=== PATIENT | male | born 1960 | race Caucasian/White ===

== ENCOUNTER → 2024-07-10 | Outpatient (CLI) | payer MEDICARE, SELFPAY ==
--- NOTE | 2024-07-10 14:44 | XR_ITS ---
Examination: PA lateral chest 2 views TECHNIQUE: Upright PA lateral chest 2 views Exam date and time: 06/09/2024 1451 hours INDICATIONS: Diagnosis hypertensive heart disease. FINDINGS: Mild prominence left ventricle Mild prominent central pulmonary arteries No lobar pneumonia No pulmonary edema IMPRESSION: Suspicious for pulmonary artery hypertension
[2024-07-10 16:51] LABS: Basophils # (Auto) 0.1 Thou/mm3 (0.0-0.2); Basophils % (Auto) 1 % (0-2.5); Eosinophils # (Auto) 0.2 Thou/mm3 (0.0-0.5); Eosinophils % (Auto) 2 % (0-10); Hematocrit 43.6 % (41.0-53.0); Hemoglobin 14.8 g/dL (13.5-16.0); Immature Granulocytes % (Auto) 1 % (0-0); Immature Granulocytes Auto 0.07 Thou/mm3 (0.00-0.00); Lymphocytes # (Auto) 4.3 Thou/mm3 (1.0-4.8); Lymphocytes % (Auto) 35 % (10-50); Mean Corpuscular HGB Conc 33.9 g/dl (31.0-37.0); Mean Corpuscular Hemoglobin 29.8 pg (25.0-35.0); Mean Corpuscular Volume 88 fL (80-100); Monocytes # (Auto) 0.7 Thou/mm3 (0.0-0.8); Monocytes % (Auto) 5 % (0-12); Neutrophils # (Auto) 7.1 Thou/mm3 (1.8-7.7); Neutrophils % (Auto) 57 % (37-80); Nucleated Red Blood Cell % 0 /100 WBC (0); Platelet Count 178 Thou/mm3 (140-440); RDW Standard Deviation 47.3 fL (35.1-43.9); Red Blood Count 4.96 Miln/mm3 (4.50-5.90); White Blood Count 12.4 Thou/mm3 (3.8-10.6)
[2024-07-10 17:03] LABS: Glucose Estimated Average 126 mg/dL (80-131)
[2024-07-10 17:12] LABS: Prostate Specific Antigen 2.27 ng/mL (0-4.00)
[2024-07-10 17:17] LABS: Alanine Aminotransferase 35 U/L (10-49); Albumin, Serum 4.4 gm/dL (3.4-4.8); Alkaline Phosphatase 94 U/L (46-116); Anion Gap 3 (7-16); Aspartate Amino Transferase 27 U/L (0-34); BUN/Creatinine Ratio 17 Ratio (12-20); Bilirubin,Total 0.5 mg/dL (0.3-1.2); Blood Urea Nitrogen 17 mg/dL (9-23); Calcium 9.4 mg/dL (8.3-10.6); Calcium (Corrected) 9.4 mg/dL (8.5-10.1); Carbon Dioxide 28.2 mMol/L (20.0-31.0); Cardiac Risk Estimate 4.5 RATIO (4.0-6.7); Chloride 107 mMol/L (98-107); Cholesterol 198 mg/dL (132-200); Free T4 (Free Thyroxine) 1.13 ng/dL (0.89-1.76); Globulin 2.2 gm/dL (2.3-3.5); Glucose 80 mg/dL (74-106); HDL Cholesterol 44 mg/dL (40-60); LDL Cholesterol,Calculated 125 mg/dL (0-130); Osmolality,Calculated 276 (275-295); Potassium 4.2 mMol/L (3.4-5.1); Sodium 138 mMol/L (136-145); Thyroid Stimulating Hormone 1.82 uIU/mL (0.55-4.78); Total Protein 6.6 gm/dL (5.7-8.2); Triglycerides 146 mg/dL (30-150); eGFR > 60 See Note
[2024-07-10 19:18] LABS: Vitamin D 25 Hydroxy Total 26.6 ng/mL (7.3-40.2)
== END | disposition home or self-care (01) ==
PROVIDERS: PCP Internal Medicine; Referring Provider Internal Medicine; Visit Provider Internal Medicine
DX: I10 Essential (primary) hypertension (principal); E55.9 Vitamin D deficiency, unspecified; N40.1 Benign prostatic hyperplasia with lower urinary tract symptoms; Z00.00 Encounter for general adult medical examination without abnormal findings
CPT/HCPCS: 36415; 71046; 80053; 80061; 82306; 83036; 84153; 84439; 84443; 85025

== ENCOUNTER 2024-12-11 01:20 | Emergency (ER) | payer OTHER, SELFPAY ==
[2024-12-11 01:40] VITALS: BP 116/64; PULSE 99; RESP 19; TEMP 36.6; O2SAT 96
[2024-12-11] MEDS: AMOXICILLIN/POT CLAV 875 TABLET 1 TAB PO (02:04)
--- NOTE | 2024-12-11 05:30 | PD.EDDENTL ---
ED Dental RME/HPI General Chief complaint: Dental/Oral/Throat Stated complaint: TOOTH ABSCESS Time Seen by Provider: 12/11/24 01:48 Arrival date/time: 12/11/24 01:20 64M with history of drug use presents to ED with lower dental pain and jaw swelling. Patient does not see dentist, but has appt next month. Patient just wants ABX. Limitations: no limitations Related Data Home Medications ?Medication ?Instructions ?Recorded ?Confirmed gemfibrozil 600 mg tablet 600 mg PO BID 05/25/18 05/25/18 lovastatin 20 mg tablet 1 tab PO HS 05/25/18 05/25/18 methadone 10 mg tablet 10 mg PO BID 05/25/18 05/25/18 nortriptyline 25 mg capsule 1 tab PO HS 05/25/18 05/25/18 (Pamelor) Previous Rx's ?Medication ?Instructions ?Recorded amoxicillin 500 mg-potassium 1 tab PO QDAY #14 tabs 05/25/18 clavulanate 125 mg tablet (Augmentin) meclizine 25 mg tablet 25 mg PO QDAY PRN dizziness #30 05/25/18 tabs amoxicillin 875 mg-potassium 1 tab PO BID 7 days #14 tabs 12/11/24 clavulanate 125 mg tablet Allergies Allergy/AdvReac Type Severity Reaction Status Date / Time No Known Allergies Allergy Verified 12/11/24 01:21 Review of Systems Review of Systems Systems Reviewed: All systems reviewed, normal except as documented Constitutional Constitutional: Reports system reviewed and no additional complaints, except as documented, Denies fever(s) and Denies headache(s) ENT Ears, Nose, Mouth, and Throat: Reports as per HPI, Reports dental pain, Denies disequilibrium and Denies headache(s) Cardiovascular Cardiovascular: Reports system reviewed and no additional complaints, except as documented, Denies chest pain and Denies dyspnea Respiratory Respiratory: Reports system reviewed and no additional complaints, except as documented, Denies cough and Denies dyspnea Gastrointestinal Gastrointestinal: Reports system reviewed and no additional complaints, except as documented, Denies abdominal pain, Denies nausea and Denies vomiting Neurologic Neurologic: Reports system reviewed and no additional complaints, except as documented, Denies confusion, Denies disequilibrium and Denies headache(s) Psychiatric Psychiatric: Denies confusion Past Medical History Past Medical History CARDIAC: Positive Cardiac Disorders, Hypercholesterolemia and Hypertension; Negative Congestive Heart Failure RESPIRATORY: Negative Chronic Obstructive Pulmonary Disease (COPD) GENITOURINARY: Negative Renal Disease MUSCULOSKELETAL: Positive Musculoskeletal Disorders ENDOCRINE: Negative Diabetes Mellitus Type 1 or Diabetes Mellitus Type 2 Surgical History SURGICAL: Positive Joint Replacement Social History SMOKING STATUS: Current every day smoker ED Exam General Limitations: Present no limitations General appearance: Present alert and in no apparent distress Head Head exam: Present atraumatic Eye Eye exam: Present normal appearance, PERRL and EOMI ENT ENT exam: Present mucous membranes moist Expanded ENT Exam Teeth exam: Present dental caries, dental tenderness # and other (L cheek/jaw swelling) Neck Neck exam: Present normal inspection, full ROM and trachea midline Chest Chest inspection: Present normal inspection and symmetric chest wall rise Respiratory Respiratory exam: Present normal lung sounds bilaterally Cardiovascular Cardiovascular exam: Present regular rate, normal rhythm and normal heart sounds Abdominal Exam Abdominal exam: Present soft and normal bowel sounds Extremities Exam Extremities exam: Present normal inspection and full ROM Back Exam Back exam: Present normal inspection and full ROM Neurological Exam Neurological exam: Present alert, oriented X3 and CN II-XII intact Psychiatric Psychiatric exam: Present normal affect and normal mood Skin Skin exam: Present warm, dry, intact and normal color Course Quality Measures none Orders Category Date Time Status Amoxicillin/Pot Clav 875 [Augmentin 875] Med 12/11/24 01:55 Discontinued 1 tab PO X1 ONE Vital Signs Vital signs: Vital Signs Temperature 98 F 12/11/24 01:40 Pulse Rate 99 12/11/24 01:40 Respiratory Rate 19 12/11/24 01:40 Blood Pressure 116/64 12/11/24 01:40 Pulse Oximetry (%) 96 12/11/24 01:40 Oxygen Delivery Method Room Air 12/11/24 01:40 O2 at 96% on RA and WNLs Dental / Oral MDM Narrative MDM Narrative:: 64M with history of drug use presents to ED with lower dental pain and jaw swelling. Patient does not see dentist, but has appt next month. Patient just wants ABX. Physical exam reveals lower dental tenderness and jaw/cheek swelling. Most teeth are gone. Patient is afebrile, calm, and alert. Meds and associate counsel given. Patient data External records reviewed:: [facility] previous records Clinical information provided by:: patient Social determinants that could affect healthcare access:: substance use Patient has the following chronic illnesses:: drug use How is presenting disease/condition affected by chronic disease/condition?: exacerbated by Evaluation data The following diagnostics were reviewed and interpreted by me:: other (specify) (none) Lab and/or radiology exams considered but not ordered:: not ordered Interpretation Summary: n/a Medications / Prescriptions Medications or Prescriptions considered but not ordered:: ordered Medication administrations:: Medication Administration History Discontinued Medications Amoxicillin/Clavulanate Potassium (Amoxicillin/Pot Clav 875 Tablet) 1 tab PO X1 ONE Stop: 12/11/24 01:56 Last Admin: 12/11/24 02:04 Dose: 1 tab Documented By: CVL above Consultations Consultation(s) initiated? (list below): No Diagnosis Dental Differential Diagnosis: gingival abscess, dental caries, toothache, dental abscess, fracture of tooth and aphthous ulcer Most likely diagnosis given after review of the tests above:: dental abscess Admission Indicated Admission indicated?: not indicated Admission Request Was there a request for admission?: No Disposition Plan Disposition Plan: Discharge Discharge Attestation Discharge Attestation: The patient and all family members were given an opportunity to ask questions and understood the discharge instructions. Discharge instructions specifically effects, indications for sooner follow up or return to the emergency department, and the expected course of current diagnosis. Patient condition: Stable Discharge Plan Plan Patient Disposition: HOME (Self Care) Discharge Disposition comment: Stable Prescriptions/Referrals Prescriptions/Med Rec: New amoxicillin-pot clavulanate 875-125 mg tablet 1 tab PO BID 7 Days Qty: 14 0RF No Action methadone 10 mg Tablet 10 mg PO BID gemfibrozil 600 mg Tablet 600 mg PO BID lovastatin 20 mg Tablet 1 tab PO HS nortriptyline [Pamelor] 25 mg Capsule 1 tab PO HS amoxicillin-pot clavulanate [Augmentin] 500-125 mg tablet 1 tab PO QDAY Qty: 14 0RF meclizine 25 mg tablet 25 mg PO QDAY MDD 2/d PRN (Reason: dizziness) Qty: 30 0RF Problem List Clinical Impression: Dental abscess Patient/Caregiver Discharge Instructions Education Materials: ED Dental Abscess with Facial ... Additional Instructions: Please follow-up with PCP within 24-48 hours and return immediately if symptoms worsen. See dentist soon. Print Language: Mohawk Stand Alone Forms: Patient Portal Info Letter MACHO/DARVIN Supervising Physician MACHO/DARVIN Supervising Physician: Dr. Soliz
== END 2024-12-11 02:11 | disposition home or self-care (01) ==
LOC: SERX 02:00
PROVIDERS: Emergency Provider Emergency Medicine; PCP Internal Medicine
DX: K04.7 Periapical abscess without sinus (principal)
CPT/HCPCS: 99283; A9270